=== PATIENT | female | born 1970 | race African-American/Black ===

== ENCOUNTER 2021-04-17 15:08 | Emergency (ER) | payer MEDICAID ==
[~2021-04-17] VITALS: Ht 162.6 cm; Wt 86.0 kg
[~2021-04-17 15:08] MED LIST: ALBU6.7H9 INH; HYDR-3782 MT; MDI
[2021-04-17 15:10] VITALS: BP 156/80
== END 2021-04-17 16:04 | disposition left against medical advice (07) ==
LOC: ER 15:08
DX: Z53.21 Procedure and treatment not carried out due to patient leaving prior to being seen by health care provider (principal)
CPT/HCPCS: 82962; 93005